=== PATIENT | male | born 1990 | race Two or more races ===

== ENCOUNTER → 2020-08-26 | Outpatient (CLI) | payer OTHER | END | disposition home or self-care (01) | LOC: ECT 12:31 | DX: F25.0 Schizoaffective disorder, bipolar type (principal); F32.9 Major depressive disorder, single episode, unspecified; F41.9 Anxiety disorder, unspecified; Z79.899 Other long term (current) drug therapy; F17.200 Nicotine dependence, unspecified, uncomplicated ==

== ENCOUNTER 2020-09-09 05:51 | Outpatient (RCR) | payer OTHER ==
[~2020-09-09] VITALS: Ht 183.5 cm; Wt 104.3 kg
[2020-09-09] VITALS (8 sets, daily range): BP systolic 114–147; BP diastolic 66–70
[2020-09-09] MEDS ORDERED: NS 500ML ONE (05:52)
[2020-09-09] MEDS ORDERED: Methohexita Syr 100mg/10ml IVP ONE (05:52)
[2020-09-09] MEDS ORDERED: Midazolam 2mg/2ml Inj ONE (05:52)
[2020-09-09] MEDS ORDERED: Succinylcholine 20mg/ml 10ml vial ONE (05:52)
[2020-09-11] VITALS (7 sets, daily range): BP systolic 129–156; BP diastolic 70–93
[2020-09-11] MEDS ORDERED: Methohexita Syr 100mg/10ml IVP ONE (09:00)
[2020-09-11] MEDS ORDERED: Midazolam 2mg/2ml Inj ONE (09:00)
[2020-09-11] MEDS ORDERED: Succinylcholine 20mg/ml 10ml vial ONE (09:00)
[2020-09-11] MEDS ORDERED: Ketorolac 60mg Inj IM ONE (09:00)
[2020-09-14] VITALS (7 sets, daily range): BP systolic 114–147; BP diastolic 59–80
[2020-09-14] MEDS ORDERED: NS 500ML ONE (06:00)
[2020-09-14] MEDS ORDERED: Ketorolac 30mg Inj ONE (06:00)
[2020-09-14] MEDS ORDERED: Methohexita Syr 100mg/10ml IVP ONE (06:00)
[2020-09-14] MEDS ORDERED: Succinylcholine 20mg/ml 10ml vial ONE (06:00)
[2020-09-14] MEDS ORDERED: Midazolam 2mg/2ml Inj ONE (06:00)
[2020-09-16] VITALS (7 sets, daily range): BP systolic 110–148; BP diastolic 52–76
[2020-09-16] MEDS ORDERED: Methohexita Syr 100mg/10ml IVP ONE (06:00)
[2020-09-16] MEDS ORDERED: NS 500ML ONE (06:00)
[2020-09-16] MEDS ORDERED: Succinylcholine 20mg/ml 10ml vial ONE (06:00)
[2020-09-16] MEDS ORDERED: Midazolam 2mg/2ml Inj ONE (06:00)
[2020-09-16] MEDS ORDERED: Ketorolac 30mg Inj ONE (06:00)
[2020-09-16] MEDS ORDERED: Atropine Sulfate 0.4mg/ml inj IVP PRN (09:39)
[2020-09-18] MEDS ORDERED: Midazolam 2mg/2ml Inj ONE (09:00)
[2020-09-18] MEDS ORDERED: Methohexita Syr 100mg/10ml IVP ONE (09:00)
[2020-09-18] MEDS ORDERED: NS 500ML ONE (09:00)
[2020-09-18] MEDS ORDERED: Succinylcholine 20mg/ml 10ml vial ONE (09:00)
[2020-09-18] MEDS ORDERED: Ketorolac 60mg Inj IM ONE (09:00)
[2020-09-18 09:32] VITALS: BP 144/83
[2020-09-18 09:37] VITALS: BP 124/76
[2020-09-18 09:42] VITALS: BP 127/81
[2020-09-18 09:47] VITALS: BP 129/79
[2020-09-18 09:52] VITALS: BP 124/69
[2020-09-18 09:57] VITALS: BP 134/69
[2020-09-21] VITALS (7 sets, daily range): BP systolic 113–132; BP diastolic 56–73
[2020-09-21] MEDS ORDERED: NS 500ML ONE (06:00)
[2020-09-21] MEDS ORDERED: Methohexita Syr 100mg/10ml IVP ONE (06:00)
[2020-09-21] MEDS ORDERED: Succinylcholine 20mg/ml 10ml vial ONE (06:00)
[2020-09-21] MEDS ORDERED: Ketorolac 30mg Inj ONE (06:00)
[2020-09-21] MEDS ORDERED: Midazolam 2mg/2ml Inj ONE (06:00)
[2020-09-23] VITALS (7 sets, daily range): BP systolic 125–160; BP diastolic 67–85
[2020-09-23] MEDS ORDERED: Succinylcholine 20mg/ml 10ml vial ONE (06:00)
[2020-09-23] MEDS ORDERED: Methohexita Syr 100mg/10ml IVP ONE (06:00)
[2020-09-23] MEDS ORDERED: NS 500ML ONE (06:00)
[2020-09-23] MEDS ORDERED: Ketorolac 30mg Inj ONE (06:00)
[2020-09-23] MEDS ORDERED: Midazolam 2mg/2ml Inj ONE (06:00)
[2020-09-25] VITALS (7 sets, daily range): BP systolic 124–145; BP diastolic 67–81
[2020-09-25] MEDS ORDERED: Ketorolac 60mg Inj IM ONE (06:00)
[2020-09-25] MEDS ORDERED: Succinylcholine 20mg/ml 10ml vial ONE (06:00)
[2020-09-25] MEDS ORDERED: NS 500ML ONE (06:00)
[2020-09-25] MEDS ORDERED: Midazolam 2mg/2ml Inj ONE (06:00)
[2020-09-25] MEDS ORDERED: Methohexita Syr 100mg/10ml IVP ONE (06:00)
[2020-09-28] VITALS (7 sets, daily range): BP systolic 134–169; BP diastolic 68–96
[2020-09-28] MEDS ORDERED: Ketorolac 60mg Inj IM ONE (06:00)
[2020-09-28] MEDS ORDERED: Succinylcholine 20mg/ml 10ml vial ONE (06:00)
[2020-09-28] MEDS ORDERED: Methohexita Syr 100mg/10ml IVP ONE (06:00)
[2020-09-28] MEDS ORDERED: Midazolam 2mg/2ml Inj ONE (06:00)
[2020-09-28] MEDS ORDERED: NS 500ML ONE (06:00)
[2020-09-30] VITALS (7 sets, daily range): BP systolic 121–155; BP diastolic 69–78
[2020-09-30] MEDS ORDERED: Succinylcholine 20mg/ml 10ml vial ONE (06:00)
[2020-09-30] MEDS ORDERED: Midazolam 2mg/2ml Inj ONE (06:00)
[2020-09-30] MEDS ORDERED: Ketorolac 60mg Inj IM ONE (06:00)
[2020-09-30] MEDS ORDERED: NS 500ML ONE (06:00)
[2020-09-30] MEDS ORDERED: Methohexita Syr 100mg/10ml IVP ONE (06:00)
[2020-09-30] MEDS ORDERED: Atropine Sulfate 0.4mg/ml inj IVP PRN (10:39)
== END 2020-10-05 | disposition home or self-care (01) ==
LOC: ECT 05:51
DX: F25.0 Schizoaffective disorder, bipolar type (principal)
CPT/HCPCS: 90870; J0330; J1885; J2250; J7040

== ENCOUNTER 2020-10-07 10:35 | Outpatient (RCR) | payer OTHER ==
[2020-09-30 11:05] VITALS: BP 129/69
== END 2020-11-05 | disposition home or self-care (01) ==
LOC: ECT 10:35
DX: Z53.9 Procedure and treatment not carried out, unspecified reason (principal)